=== PATIENT | female | born 1935 ===

== ENCOUNTER 2018-04-28 17:43 | Observation (INO) ==
--- NOTE | 2018-04-28 19:15 | Emergency Department Note ---
Disposition Clinical Impression: Shortness of breath, NSTEMI (non-ST elevated myocardial infarction), Hypertension, Hyperlipidemia Disposition: Admitted As Inpatient Condition: Good General Adult HPI - General Chief complaint: ED Shortness of Breath/Dyspnea Stated complaint: SOB/Nausea/Pain in arms/Legs Time Seen by Provider: 04/28/18 18:28 Source: patient Limitations: no limitations Nursing Notes Reviewed: Yes Vital Signs Reviewed: Yes - History of Present Illness HPI Narrative: Patient's an 82-year-old female with history of hypertension and hyperlipidemia who presents the emergency department with complaints of shortness of breath, generalized weakness and lightheadedness. The patient states that last night at approximately 12 AM she developed burning pain throughout bilateral upper and lower extremities with slight ringing in her ears. She states she otherwise feels short of breath when she gets up and move around and feels that she just cannot quite catch her breath or take a deep breath in. She is being evaluated for DVT with Dr. Florence as her bilateral lower extremity pain has been ongoing for some time. She otherwise feels nauseated at this point. She denies any vomiting, chest pain, abdominal pain, dysuria, hematuria, diarrhea, constipation. Pain Scale: 10 - Related Data Allergies Allergy/AdvReac Type Severity Reaction Status Date / Time cefdinir AdvReac Difficulty Verified 04/28/18 18:00 Breathing Review of Systems: In addition to that documented in the HPI above, the additional ROS was obtained: General: Denies fever. Denies chills. Denies weight loss. Denies behavioral change. Eyes: Denies visual changes. ENT: Denies nasal congestion. Denies sore throat. Denies hearing change. Cardio: Denies chest pain. Denies palpitations. Respiratory: Denies cough. ADMITS shortness of breath. Denies wheezing. GI: Admits nausea, DENIES vomiting, or diarrhea. Denies hematochezia or melena. Denies abdominal pain. : Denies dysuria, hematuria, or urinary retention MSK: Denies back pain. Denies joint swelling. Neuro: Denies slurred speech. ADMITS tingling. DENIES numbness Denies focal weakness. Denies headache. Denies loss of consciousness. Psych: Denies mood changes. All systems ED: reviewed and negative except as stated. Review of Systems: As Per HPI Past Medical History - Past Medical History Medical history: Reports: hyperlipidemia, hypertension, thyroid disease Psychiatric history: Reports: no psych history - Social History Smoking Status: Never smoker Smokeless Tobacco Status: No Alcohol use: Reports: none Drug use: Reports: none Physical Exam General: Conversant. No apparent distress. Follow commands. Appears stated age. Neck: No JVD. Trachea midline. Neck supple. Eyes: PERRL. No scleral icterus. HENT: Normocephalic and atraumatic. Moist mucus membranes. Cardiovascular: Regular rate and rhythm. Normal S1 and S2. No murmurs appreciated. Normal capillary refill. Extremities well perfused with 2+ distal pulses bilaterally. No edema. Pulmonary: Normal and equal breath sounds bilaterally, anteriorly and posteriorly. No wheezes, rales, or rhonchi. Not in respiratory distress. Speaks in full sentences. Abdomen: Soft, nondistended, and tontender. No bruits or masses. No guarding. Neuro: Alert and oriented to person, place, and time. CN II-XII tested and grossly intact. No hemineglect. Speech is fluid and without slurring. Sensory: Sensation intact to light touch in all extremities. Motor: Normal tone and bulk. No pronator drift. 5/5 strength in LUE 5/5 strength in RUE 5/5 strength in LLE 5/5 strength in RLE Coordination: heel to huffman testing intact bilaterally. Reflexes: Brachioradialis, biceps, and patellar reflexes 2+ and symmetric bilaterally. Babinski with downgoing toes bilaterally. Skin: No rashes noted on visualized skin. Musculoskeletal: No bony abnormalities visualized. Moves all extremities. Psych: Normal mood. Pleasant. Makes appropriate eye contact. - General Limitations: no limitations General appearance: alert, in no apparent distress Course Vital Signs Temperature 98.6 F 04/28/18 17:57 Pulse Rate 65 04/28/18 17:57 Respiratory Rate 14 04/28/18 17:57 Blood Pressure 203/71 04/28/18 17:57 O2 Sat by Pulse Oximetry 98 04/28/18 17:57 Temperature 98.6 F 04/28/18 17:57 Pulse Rate 58 04/28/18 20:49 Respiratory Rate 19 04/28/18 20:49 Blood Pressure 144/55 04/28/18 20:49 O2 Sat by Pulse Oximetry 97 04/28/18 20:49 Oxygen Delivery Oxygen Delivery Room Air Medical Decision Making - MDM Narrative Medical decision making narrative: 82-year-old female who presents with generalized weakness and shortness breath. Given the patient's age did obtain CBC, BMP, EKG, troponin, chest x-ray, TSH and urinalysis. CBC and BMP appear approximately the patient's baseline as she has chronic hyponatremia. EKG appears appear accident with the patient's baseline without ischemic changes. Chest x-ray unremarkable. Troponin is elevated at 0.06. The patient does have risk factors including hypertension and hyp erlipidemia but has otherwise never had cardiac issues. Given the patient's age and heart score of 4 to believe she warrants admission and further cardiac evaluation. Discussed the case with on-call hospitalist, Dr. Rueda who agrees with plan for admission. 325 mg aspirin given. Patient agrees with and understands course of treatment plan including plan for admission. All questions answered. - Medical Records Medical records reviewed: Yes I reviewed the patient's medical records. - Lab Data Lab results reviewed: Yes I reviewed the patient's lab results. Result diagrams: 04/28/18 19:18 04/28/18 19:18 Lab Results 04/28/18 04/28/18 04/28/18 Range/Units 19:18 19:18 19:25 WBC 8.0 (4.3-11.1) K/mcL RBC 4.31 (3.82-4.97) M/mcL Hgb 12.5 (11.5-15.4) g/dL Hct 36.8 (35.3-44.9) % MCV 85.4 (83.0-100.0) fL MCH 29.0 (28.0-33.3) pg MCHC 34.0 (31.6-35.5) g/dL RDW 13.9 (11.5-14.5) % Plt Count 268 (140-400) K/mcL MPV 8.4 L (9.4-12.4) fL Immature Gran % 0.3 (0-4) % Seg Neutrophils % 65.0 % Lymphocytes % 24.5 % Monocytes % 8.7 % Eosinophils % 1.0 % Basophils % 0.5 % Neutrophils # 5.2 (1.6-8.9) K/mcL Lymphocytes # 2.0 (0.6-4.6) K/mcL Monocytes # 0.7 (0.0-1.3) K/mcL Eosinophils # 0.1 (0.0-0.6) K/mcL Basophils # 0.0 (0.0-0.2) K/mcL Sodium 129 L (136-145) mEq/L Potassium 3.9 (3.5-5.1) mEq/L Chloride 105 (98-107) mEq/L Carbon Dioxide 24 (23-29) mEq/L BUN 11 (8-23) mg/dL Creatinine 0.47 L (0.60-1.20) mg/dL Est GFR ( Amer) > 60 (> 60) Est GFR (Non-Af Amer) > 60 (> 60) BUN/Creatinine Ratio 23 (6-26) Glucose 107 H (70-105) mg/dL Calculated Osmolality 268 L (280-300) Calcium 9.4 (8.6-10.3) mg/dL Total Bilirubin 0.3 (0.3-1.0) mg/dL Direct Bilirubin 0.1 (0.0-0.2) mg/dL Indirect Bilirubin 0.2 (0.0-1.2) mg/dL AST 14 (13-39) Units/L ALT 19 (7-52) Units/L Alkaline Phosphatase 72 (34-104) Units/L Troponin I 0.06 H* (< 0.04) ng/mL Serum Total Protein 6.5 (6.4-8.9) g/dL Albumin 4.1 (3.5-5.7) g/dL Globulin 2.4 (2.4-3.5) g/dL Albumin/Globulin Ratio 1.7 (1.1-2.2) TSH 2.877 (0.340-5.600) mcIU/mL Urine Color Yellow (Yellow) Urine Clarity Clear (Clear) Urine pH 6.5 (5.0-8.0) pH Units Ur Specific [place] 1.010 (1.010-1.025) Urine Protein Negative (Neg-Trace) mg/dL Urine Glucose (UA) Normal (Normal) mg/dL Urine Ketones Negative (Negative) mg/dL Urine Blood Moderate H (Negative) Urine Nitrite Negative (Negative) Urine Bilirubin Negative (Negative) Urine Urobilinogen Normal (Normal) mg/dL Ur Leukocyte Esterase Negative (Negative) Urine Microscopic RBC 3-5 H (0-3) per hpf Urine Microscopic WBC 0-3 (0-3) per hpf Ur Squamous Epith Cells None Seen (None-Few) per lpf Urine Bacteria None Seen (None-Few) per hpf Hyaline Casts None Seen (None-Few) per lpf Ur Culture Indicated? NO (NO) - Radiology Data Radiology results reviewed: Yes I reviewed the patient's radiology results. Chest X-Ray 04/28/18 18:45 IMPRESSION: No acute findings. D/ / 04/28/2018 19:13:32 Dennis Oreilly MD / crista Interpreting Provider: Dennis Oreilly MD - EKG Data EKG #1 EKG attestation: Yes I reviewed and interpreted this EKG. EKG results narrative: Normal sinus rhythm rate of 58. Normal axis. WA 126, QRS 91, QTC 469, QTC 461. No evidence of ST elevation Attestation Statement - Attestation Attestation: DR Harrington note: Pt seen in conjunction w/ Resident Dr Colon; Please see her charting for c omplete documentation. I agree with patient's Assessment and spent [id number] time with the patient and I agree with the patient's treatment and disposition. Patient pain-free at this time. She had vague chest tightness and elevated blood pressure tonight. No known prior coronary disease. Asymptomatic upon admission. No focal neurological findings. Hyponatremia is chronic. EKG and blood work reviewed Heart Score - Score History: Slightly Suspicious EKG: Normal Age: Greater than 65 Risk Factors: 1-2 risk factors Troponin: 1-3x normal limit HEART Score Total: 4
[2018-04-28 19:35] LABS: Bilirubin,Urine Negative (Negative); Blood,Urine Moderate (Negative); Clarity,Urine Clear (Clear); Color,Urine Yellow (Yellow); Glucose,Urine (UA) Normal (Normal); Ketones,Urine Negative (Negative); Leukocyte Esterase,Urine Negative (Negative); Nitrite,Urine Negative (Negative); PH,Urine 6.5 pH Units (5.0-8.0); Protein,Urine Negative (Neg-Trace); Urobilinogen,Urine Normal (Normal)
[2018-04-28 19:36] LABS: Basophils % 0.5 %; Eosinophils # 0.1 K/mcL (0.0-0.6); Hematocrit 36.8 % (35.3-44.9); Hemoglobin 12.5 g/dL (11.5-15.4); Immature Granulocytes % 0.3 % (0-4); Lymphocytes % 24.5 %; Mean Corpuscular Volume 85.4 fL (83.0-100.0); Mean Platelet Volume 8.4 fL (9.4-12.4); Monocytes # 0.7 K/mcL (0.0-1.3); Monocytes % 8.7 %; Neutrophils # 5.2 K/mcL (1.6-8.9); Platelet Count 268 K/mcL (140-400); Red Blood Count 4.31 M/mcL (3.82-4.97); Red Cell Distribution Width 13.9 % (11.5-14.5)
[2018-04-28] MEDS ORDERED: Ondansetron ODT 4 MG TAB.RAPDIS SL ONE (19:36)
[2018-04-28 19:38] LABS: Bacteria,Urine None Seen per hpf (None-Few); Hyaline Casts,Urine None Seen per lpf (None-Few); Squamous Epithelial Cell,Urine None Seen per lpf (None-Few); WBC,Urine 0-3 per hpf (0-3)
[2018-04-28 19:55] LABS: Alanine Aminotransferase 19 Units/L (7-52); Albumin 4.1 g/dL (3.5-5.7); Albumin/Globulin Ratio 1.7 (1.1-2.2); Alkaline Phosphatase 72 Units/L (34-104); Aspartate Amino Transferase 14 Units/L (13-39); BUN/Creatinine Ratio 23 (6-26); Bilirubin,Direct 0.1 mg/dL (0.0-0.2); Bilirubin,Indirect 0.2 mg/dL (0.0-1.2); Bilirubin,Total 0.3 mg/dL (0.3-1.0); Blood Urea Nitrogen 11 mg/dL (8-23); Calcium 9.4 mg/dL (8.6-10.3); Carbon Dioxide 24 mEq/L (23-29); Chloride 105 mEq/L (98-107); Globulin 2.4 g/dL (2.4-3.5); Glucose 107 mg/dL (70-105); Osmolality,Calculated 268 (280-300); Potassium 3.9 mEq/L (3.5-5.1); Sodium 129 mEq/L (136-145); Total Protein 6.5 g/dL (6.4-8.9); eGFR For Non-African Americans > 60 (> 60)
[2018-04-28 19:59] LABS: Troponin I 0.06 ng/mL (< 0.04)
[2018-04-28 20:21] LABS: Thyroid Stimulating Hormone 2.877 mcIU/mL (0.340-5.600)
[2018-04-28] MEDS ORDERED: Aspirin 81 MG TAB.CHEW PO STA (21:08)
[2018-04-29] MEDS ORDERED: Nitroglycerin 0.4 MG TAB.SUBL SL PRN (00:37)
[2018-04-29] MEDS ORDERED: Ondansetron 4 MG/2 ML VIAL IVP PRN (00:37)
[2018-04-29] MEDS ORDERED: Naloxone 0.4 MG/ML INJ IVP PRN (00:40)
--- NOTE | 2018-04-29 01:11 | Internal Med History&Physical ---
<Vy Burton N - Last Filed: 04/29/18 03:08> Date of Encounter: 04/29/18 Time of Encounter: 01:04 Internal Medicine - H&P: HPI Chief complaint: chest discomfort, nausea, sensory changes History of present illness: Ms. Stephenson is a 82 year old female with a history of hypertension, hyperlipidemia and hypothyroidism who presents for a 1 day history of chest di scomfort. Patient states that her symptoms were preceded by chronic "burning" sensation that she has been experiencing in her arms and legs for the past several months. Patient states the symptoms have been progressively worsening and now occur almost daily. She is currently being worked up by Dr. Florence, vascular surgery, who ordered a ultrasound for evaluation of this complaint recently which was negative for DVT. She describes her extremity symptoms as if her arms and legs are on fire. This is associated with diffuse upper and lower extremity weakness as well. Patient states that yesterday her symptoms were worse and this was followed by shortness of breath and a chest discomfort in the central part of her chest. She describes it as a burning sensation in her chest with some mild pressure, denies radiation. Associated with shortness of breath and nausea but no diaphoresis. This prompted the patient to present to the emergency department for further evaluation and workup. In the emergency department patient was hypertensive with a systolic BP of 203. Her lab workup was remarkable for chronic hyponatremia and a mild elevation of her troponin at 0.06. EKG in the emergency department showed sinus rhythm with no ST elevations. Patient denies any history of coronary artery disease and has never been evaluated by cardiology in the past. She is asymptomatic at this time and does not complain of any chest pain or shortness of breath, but does endorse some nausea. Due to patient's nonspecific chest discomfort and elevation of her troponin she was admitted for further evaluation. Past Med Surg Social Fam HX - Past Medical History Medical history: hyperlipidemia, hypertension, thyroid disease Psychiatric history: no psych history - Social History Smoking Status: Never smoker Smokeless Tobacco Status: No Alcohol use: none Drug use: none Internal Medicine - H&P: Meds Allergy/AdvReac Type Severity Reaction Status Date / Time cefdinir AdvReac Difficulty Verified 04/28/18 18:00 Breathing All Systems PM: A 10-system review of systems was performed and is negative for pertinent findings except as documented above in the HPI. - EENT Eyes: no loss of vision Ears: decreased hearing - Cardiovascular Cardiovascular ROS IM: chest pain, no diaphoresis - Respiratory Respiratory: dyspnea, no cough, no wheezing - Gastrointestinal Gastrointestinal: no abdominal pain - Genitourinary Genitourinary: no dysuria - Musculoskeletal Musculoskeletal ROS IM: no back pain, no neck pain - Integumentary Integumentary IM: no rash - Neurological Neurological ROS: no abnormal gait - Psychiatric Psychiatric: no confusion - Endocrine Endocrine IM: no excessive sweating - Constitutional Vitals: Temp Pulse Resp BP Pulse Ox 98.6 F 58 14 140/49 97 04/28/18 17:57 04/28/18 20:49 04/29/18 00:23 04/29/18 00:23 04/28/18 20:49 Exam: Constitutional: Appears younger than stated age, resting comfortable, in no acute distress HEENT: Pupils are equal and round, extraocular muscles are intact. External ears and nares patent. No intra-oral lesions. No facial asymmetry or dysarthria. Neck: No JVD, trachea midline Chest: Symmetric chest wall rise, no tenderness to palpation Respiratory: Clear to auscultation bilaterally, no rales rhonchi or wheezing Cardiovascular: Regular rate and rhythm, no murmurs Abdomen: Soft, nontender, no guarding or rigidity Extremity: Moves all extremities, no cyanosis, clubbing, or edema Skin: No rashes or jaundice Psych: Appropriate mood and affect Neurological: -General: Alert and oriented 3 -Cranial nerves: No facial asymmetry, no dysarthria, tongue protrudes midline, EOMI, normal SCM to be his muscle strength -Upper extremity: Sensation intact to light touch, strength is 5 out of 5 bilaterally throughout, biceps reflex is 1+, no pronator drift, finger to nose normal -Lower extremity: Sensation intact to light touch, strength 5 out of 5 bilatera lly throughout, patellar reflexes 2+ Internal Med - H&P Results - Labs CBC & Chem 7: 04/29/18 01:07 04/29/18 01:07 Labs: Short CBC 04/28/18 Range/Units 19:18 WBC 8.0 (4.3-11.1) K/mcL Hgb 12.5 (11.5-15.4) g/dL Hct 36.8 (35.3-44.9) % Plt Count 268 (140-400) K/mcL Neutrophils # 5.2 (1.6-8.9) K/mcL BMP 04/28/18 19:18 Sodium 129 L Potassium 3.9 Chloride 105 Carbon Dioxide 24 BUN 11 Creatinine 0.47 L Glucose 107 H Calcium 9.4 Cardiac Enzymes 04/28/18 Range/Units 19:18 Troponin I 0.06 H* (< 0.04) ng/mL Liver Function 04/28/18 Range/Units 19:18 Total Bilirubin 0.3 (0.3-1.0) mg/dL Direct Bilirubin 0.1 (0.0-0.2) mg/dL AST 14 (13-39) Units/L ALT 19 (7-52) Units/L Alkaline Phosphatase 72 (34-104) Units/L Albumin 4.1 (3.5-5.7) g/dL Urine 04/28/18 Range/Units 19:25 Urine Color Yellow (Yellow) Urine Clarity Clear (Clear) Urine pH 6.5 (5.0-8.0) pH Units Ur Specific [place] 1.010 (1.010-1.025) Urine Protein Negative (Neg-Trace) mg/dL Urine Glucose (UA) Normal (Normal) mg/dL - Impressions ITS Impressions Chest X-Ray 04/28/18 18:45 IMPRESSION: No acute findings. D/ / 04/28/2018 19:13:32 Dennis Oreilly MD / crista Interpreting Provider: Dennis Oreilly MD - Assessment and Plan (1) Elevated troponin Current Visit: Yes Status: Acute Assessment and plan: Patient presented with one-day history of chest discomfort Associated with shortness of breath and nausea No history of coronary artery disease, declines previous cardiac workup No EKG evidence for any ST elevations Patient received loading dose aspirin in the emergency department Currently not complaining of chest pain or shortness of breath It is possible her troponin elevation may be secondary to demand from her significant hypertension We will trend troponin BNP pending Echo in the morning Stress test ordered Cardiology consultation pending Patient also was recently worked up for DVT which was negative, however will obtain d-dimer (2) Paresthesias Current Visit: Yes Status: Acute Assessment and plan: Patient's chest discomfort symptoms were preceded by worsening "burning like "sensation in her upper and lower extremities This is associated with weakness of the upper lower extremity's as well These symptoms have been chronic for several months, however has been worsening over the past few months Unknown etiology at this time for patient sensory changes Changes are bilateral and equal, low suspicion for CVA Patient was recently evaluated by vascular surgery and a Doppler lower extremity was negative for DVT Patient declines any neck pain, and there are no brisk reflexes on examination, therefore a spinal stenosis-like process is less likely however further imaging with MRI of the spine or a neurological consultation may be considered for patients nonspecific symptoms. Patient is otherwise neurologically intact. We will check a vitamin B12 and folate level (3) Hyperlipidemia Current Visit: Yes Status: Acute Assessment and plan: Continue home dose simvastatin Lipid panel and A1c pending Qualifiers: Hyperlipidemia type: unspecified Qualified Code(s): E78.5 - Hyperlipidemia, unspecified (4) Hypertension Current Visit: Yes Status: Acute Assessment and plan: Continue home dose lisinopril Every 4 hour vital signs Qualifiers: Hypertension type: essential hypertension Qualified Code(s): I10 - Essential (primary) hypertension (5) Hyponatremia Current Visit: Yes Status: Chronic Assessment and plan: Chronic, will continue to trend (6) DVT prophylaxis Current Visit: Yes Status: Acute Assessment and plan: heparin 5000u subQ q12 hours - Time Spent With Patient Total time spent is greater than 50% in coordination of care (as documented) at patient's floor/unit and/or counseling patient: Mian Simons - Last Filed: 04/29/18 03:24> Date of Encounter: 04/29/18 Internal Medicine - H&P: HPI History of present illness: Ms. Stephenson is a 82 year old female All Systems PM: A 10-system review of systems was performed and is negative for pertinent findings except as documented above in the HPI. - Constitutional Vitals: Temp Pulse Resp BP Pulse Ox 98.3 F 51 16 151/62 97 04/29/18 03:17 04/29/18 03:17 04/29/18 03:17 04/29/18 03:17 04/29/18 03:17 Internal Med - H&P Results - Labs CBC & Chem 7: 04/29/18 01:07 04/29/18 01:07 Labs: Short CBC 04/28/18 04/29/18 Range/Units 19:18 01:07 WBC 8.0 6.7 (4.3-11.1) K/mcL Hgb 12.5 11.8 (11.5-15.4) g/dL Hct 36.8 35.6 (35.3-44.9) % Plt Count 268 263 (140-400) K/mcL Neutrophils # 5.2 3.7 (1.6-8.9) K/mcL BMP 04/28/18 04/29/18 19:18 01:07 Sodium 129 L 131 L Potassium 3.9 3.8 Chloride 105 103 Carbon Dioxide 24 26 BUN 11 10 Creatinine 0.47 L 0.57 L Glucose 107 H 110 H Calcium 9.4 9.4 Cardiac Enzymes 04/28/18 04/29/18 Range/Units 19:18 01:07 Troponin I 0.06 H* 0.05 H* (< 0.04) ng/mL Liver Function 04/28/18 04/29/18 Range/Units 19:18 01:07 Total Bilirubin 0.3 0.4 (0.3-1.0) mg/dL Direct Bilirubin 0.1 (0.0-0.2) mg/dL AST 14 15 (13-39) Units/L ALT 19 18 (7-52) Units/L Alkaline Phosphatase 72 72 (34-104) Units/L Albumin 4.1 4.0 (3.5-5.7) g/dL Urine 04/28/18 Range/Units 19:25 Urine Color Yellow (Yellow) Urine Clarity Clear (Clear) Urine pH 6.5 (5.0-8.0) pH Units Ur Specific [place] 1.010 (1.010-1.025) Urine Protein Negative (Neg-Trace) mg/dL Urine Glucose (UA) Normal (Normal) mg/dL - Impressions ITS Impressions Chest X-Ray 04/28/18 18:45 IMPRESSION: No acute findings. D/ / 04/28/2018 19:13:32 Dennis Oreilly MD / crista Interpreting Provider: Dennis Oreilly MD - Time Spent With Patient Total time spent is greater than 50% in coordination of care (as documented) at patient's floor/unit and/or counseling patient: - Attending Attestation I performed a history and physical exam of the patient and discussed management with the resident. I reviewed the resident's note and agree with the documented findings and plan of care. Family history reviewed and found non-contributory.
[2018-04-29 01:38] LABS: Basophils # 0.1 K/mcL (0.0-0.2); Basophils % 0.7 %; Eosinophils # 0.1 K/mcL (0.0-0.6); Eosinophils % 1.8 %; Hematocrit 35.6 % (35.3-44.9); Hemoglobin 11.8 g/dL (11.5-15.4); Immature Granulocytes % 0.1 % (0-4); Lymphocytes # 2.2 K/mcL (0.6-4.6); Lymphocytes % 32.5 %; Mean Corpuscular HGB Conc 33.1 g/dL (31.6-35.5); Mean Corpuscular Hemoglobin 28.5 pg (28.0-33.3); Mean Platelet Volume 8.6 fL (9.4-12.4); Monocytes # 0.6 K/mcL (0.0-1.3); Monocytes % 9.5 %; Neutrophils # 3.7 K/mcL (1.6-8.9); Platelet Count 263 K/mcL (140-400); Red Blood Count 4.14 M/mcL (3.82-4.97); Red Cell Distribution Width 14.1 % (11.5-14.5); Segmented Neutrophils % 55.4 %
[2018-04-29 01:47] LABS: INR 1.2
[2018-04-29 02:03] LABS: Alanine Aminotransferase 18 Units/L (7-52); Albumin/Globulin Ratio 1.6 (1.1-2.2); Alkaline Phosphatase 72 Units/L (34-104); Aspartate Amino Transferase 15 Units/L (13-39); BUN/Creatinine Ratio 18 (6-26); Bilirubin,Total 0.4 mg/dL (0.3-1.0); Blood Urea Nitrogen 10 mg/dL (8-23); Calcium 9.4 mg/dL (8.6-10.3); Carbon Dioxide 26 mEq/L (23-29); Chloride 103 mEq/L (98-107); Chol/HDL Ratio 2.2 (0-4.9); Cholesterol 176 mg/dL (< 200); Globulin 2.5 g/dL (2.4-3.5); Glucose 110 mg/dL (70-105); HDL Cholesterol 79 mg/dL (40-59); LDL Cholesterol,Calculated 82 mg/dL (0-99); Magnesium 2.3 mg/dL (1.6-2.6); Osmolality,Calculated 272 (280-300); Potassium 3.8 mEq/L (3.5-5.1); Sodium 131 mEq/L (136-145); Total Protein 6.5 g/dL (6.4-8.9); Triglycerides 76 mg/dL (< 150); eGFR For Non-African Americans > 60 (> 60)
[2018-04-29] MEDS ORDERED: *HR* LORazepam 1 MG TABLET PO ONE (03:22)
[2018-04-29] MEDS ORDERED: *HR* Promethazine 25 MG/ML VIAL IVP ONE (03:23)
[2018-04-29] MEDS ORDERED: Melatonin 3 MG TABLET PO PRN (05:49)
[2018-04-29] MEDS ORDERED: Regadenoson 0.4 MG/5 ML SYRINGE IVP ONE (05:51)
[2018-04-29] MEDS ORDERED: *HR* LORazepam 0.5 MG TABLET PO ONE (05:52)
[2018-04-29] MEDS ORDERED: *HR* Heparin 5,000 UNIT/ML VIAL SQ SCH (06:00)
[2018-04-29 07:06] VITALS: BP 145/74
[2018-04-29 07:53] LABS: Folate 18.2 ng/mL (3.0-16.0)
[2018-04-29 08:20] LABS: Estimated Average Glucose 117 mg/dl; Hemoglobin A1C 5.7 %
--- NOTE | 2018-04-29 08:47 | Event Note ---
Date of Encounter: 04/29/18 Time of Encounter: 08:45 - Cardiology Event Note [place]. 0.06, and 0.05 x 2 in setting of HTN SBP 200's. ST pending, discussed with primary service, ok to proceed with stress test. Suspected type II demand ischemia.
[2018-04-29] MEDS ORDERED: Aspirin 81 MG TAB.CHEW PO SCH (09:00)
--- NOTE | 2018-04-29 12:38 | Discharge Summary ---
<Sylvie Shipley - Last Filed: 04/29/18 13:57> - NOTES TO OUTPATIENT PROVIDER Notes to Outpatient Provider: Blood pressure was elevated to 203/71 upon presentation. Therefore increased lisinopril from 10mg to 20mg. Instructed to continue to monitor at home. Believe chest pain may be due to GERD therefore given omeprazole. Orders not resulted at time of discharge: Pending orders 04/28/18 18:45 ECG 12 lead ECG [ECG] Stat 04/29/18 00:39 NM elyse perf SPECT multi [NM] Routine 04/29/18 12:45 Troponin I Q6H Date of Encounter: 04/29/18 Time of Encounter: 09:30 - Discharge Diagnosis (1) Hypertension Priority: Secondary Status: Acute Qualifiers: Hypertension type: essential hypertension Qualified Code(s): I10 - Essential (primary) hypertension (2) Hyperlipidemia Priority: Secondary Status: Acute Qualifiers: Hyperlipidemia type: unspecified Qualified Code(s): E78.5 - Hyperlipidemia, unspecified (3) Elevated troponin Priority: Secondary Status: Acute (4) Paresthesias Priority: Secondary Status: Acute (5) Chest pain Priority: Primary Status: Acute Qualifiers: Chest pain type: unspecified Qualified Code(s): R07.9 - Chest pain, unspecified Hospital course: Ms. Stephenson is a 82 year old female with a history of hypertension, hyperlipidemia, and hypothyroidism who presents for a 1 day history of chest discomfort and burning who was admitted for ACS r/o. Her lab workup was remarkable for chronic hyponatremia and a mild elevation of her troponin at 0.06, 0.05,0.05. EKG in the emergency department showed sinus rhythm with no ST elevations. Also had elevated BP of 203/71 upon initial evaluation but returned to a systolic in the 140s within the first 8 hours after admission without intervention. Nuclear stress test showed No ischemia or infarct on perfusion study. Stress LVEF 67%. Patient had an episode of chest burning and nausea this morning that was relieved by Zofran and Ativan. She was also complaining of chronic peripheral burning in her extremities which her chest pain felt like a continuation of this extending to her core. We believe chest burning to be due to either GERD or anxiety. Patient was discharged with a prescription for omeprazole 20mg daily, gabapentin 100mg TID, Zofran and her lisinopril was increased from 10mg to 20mg. Patient was discharged home with instructions to f/u with her PCP within the next week. Discharge discussed with: patient - Time Spent with Patient Total time spent providing and/or coordinating discharge services: - Discharge Medications Prescriptions: New RX: Simvastatin [Zocor] 10 mg PO HS tablet RX: Aspirin 81 mg PO DAILY tab.chew RX: Levothyroxine [Synthroid] 75 mcg PO DAILY@0630 tablet RX: Melatonin 3 mg PO HS PRN tablet PRN Reason: Insomnia Ondansetron ODT [Zofran ODT] 4 mg PO Q6HR PRN #20 tab.rapdis PRN Reason: Nausea And Vomiting RX: Gabapentin [Neurontin] 100 mg PO TID #90 capsule RX: Omeprazole 20 mg PO DAILY #30 tablet. RX: Lisinopril [Zestril] 20 mg PO DAILY #30 tablet Home Medications: Ondansetron ODT [Zofran ODT] 4 mg PO Q6HR PRN #20 tab.rapdis 04/29/18 [Rx] RX: Aspirin 81 mg PO DAILY tab.chew 04/29/18 [Rx] RX: Gabapentin [Neurontin] 100 mg PO TID #90 capsule 04/29/18 [Rx] RX: Levothyroxine [Synthroid] 75 mcg PO DAILY@0630 tablet 04/29/18 [Rx] RX: Lisinopril [Zestril] 20 mg PO DAILY #30 tablet 04/29/18 [Rx] RX: Melatonin 3 mg PO HS PRN tablet 04/29/18 [Rx] RX: Omeprazole 20 mg PO DAILY #30 tablet. 04/29/18 [Rx] RX: Simvastatin [Zocor] 10 mg PO HS tablet 04/29/18 [Rx] Allergies/Adverse Reactions: Allergy/AdvReac Type Severity Reaction Status Date / Time cefdinir AdvReac Difficulty Verified 04/28/18 18:00 Breathing Date of admission: 04/29/18 00:06 Primary care physician: Nena Magana CNP Discharging clinician: Rowena Quispe Anticipated date of discharge: 04/29/18 - Constitutional Vitals: Temp Pulse Resp BP Pulse Ox 97.6 F 51 16 145/74 96 04/29/18 07:05 04/29/18 07:05 04/29/18 07:05 04/29/18 07:05 04/29/18 07:59 Exam: Constitutional: Alert, in no acute distress Head: Normocephalic, atraumatic Heart: Normal, regular rate and rhythm, no murmurs Lungs: Clear to auscultation, no wheezes, rales, or rhonchi Abdomen: Soft, nondistended, nontender, bowel sounds present and normal, no gua rding or rigidity. Extremities: No edema, No clubbing, radial pulse +2/4, capillary refill <2sec. Skin: Skin warm and dry, no lesions, no rashes, no jaundice Neurologic: Cranial nerves II through XII grossly intact, strength 5/5 in all extremities, negative romberg, no nystagmus, sensation intact Psych: Cooperative with exam, good eye contact, cognitive function intact, speech clear, thought process logical, and goal directed - Patient Status Disposition: Home, Self-Care Condition: Good Functional capacity at discharge: independent ambulation Overall status at discharge: patient is progressing back to baseline - Discharge Instructions Instructions: Angina (DC), Chronic Hypertension (DC) Follow Up With: Nena Magana CNP [Primary Care Provider] - 05/02/18 2:00 pm Additional Instructions: Return to the ED if worsening, new, or concerning symptoms occur. Please take medications as prescribed. Please follow-up with her primary care physician in one week. - Diet and Activity Activity: increase activity as tolerated Diet: advance to your usual diet <Rowena Quispe - Last Filed: 04/29/18 14:32> Orders not resulted at time of discharge: Pending orders 04/29/18 00:39 NM elyse perf SPECT multi [NM] Routine Date of Encounter: 04/29/18 - Discharge Diagnosis (1) Hypertension Status: Acute Qualifiers: Hypertension type: essential hypertension Qualified Code(s): I10 - Essential (primary) hypertension (2) Hyperlipidemia Status: Acute Qualifiers: Hyperlipidemia type: unspecified Qualified Code(s): E78.5 - Hyperlipidemia, unspecified (3) Elevated troponin Status: Acute (4) Paresthesias Status: Acute (5) Chest pain Status: Acute Qualifiers: Chest pain type: unspecified Qualified Code(s): R07.9 - Chest pain, unspecified Hospital course: Ms. Stephensno is a 82 year old female - Time Spent with Patient Total time spent providing and/or coordinating discharge services: Date of admission: 04/29/18 00:06 Primary care physician: Nena Magana CNP - Constitutional Vitals: Temp Pulse Resp BP Pulse Ox 97.6 F 51 16 145/74 96 04/29/18 07:05 04/29/18 07:05 04/29/18 07:05 04/29/18 07:05 04/29/18 07:59 - Attending Attestation I examined this patient and my medical decision-making was reviewed with the Resident Physician Dr. Shipley. I agree with the documented findings, disposition and treatment plan as described except to the extent set forth below. Ms. Stephenson is a 82 year old female with a history of hypertension, hyperlipidemia and hypothyroidism who presents for a 1 day history of chest discomfort. She also c/o chronic b/l LE and UE parasthesia / tingling sensation. 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 Her initial troponin slightly elevated at 0.06, most likely its demand ischemia due to severe hypertension. Her serial troponin trended down to normal 0.04. She did go for nuclear stress test which came back is negative for ischemia, no perfusion defect noticed. So will discharge her home in a stable condition to day. Her paresthesia seems to be secondary to peripheral neuropathy, so started her on on Neurontin 100mg at bedtime. She does have GERD like symptoms with nausea. So placed her on PP and Zofran PRN. Will discharge her home in a stable condition today. Gen: A, A< o X 3 Chest: Diminished BS B/l no crackles Heart: S1S2+ RRR No Murmurs
--- NOTE | 2018-05-01 19:33 | Electrocardiograph Report ---
[place] [id number] Test Date: 2018-04-28 Pat Name: Denisha Stephenson Department: [id number] Room: 3B Gender: F [employer] Cook: : 1935 Requested By: Arely Colon Order Number: [id number] Reading MD: Linsey Chacon Measurements Intervals [place] Rate: 58 P: 35 MD: 126 QRS: 12 QRSD: 91 T: 52 QT: 469 QTc: 461 Interpretive Statements Sinus rhythm Electronically Signed On 05-01-2018 19:31:42 EST by Linsey Chacon
== END 2018-04-29 15:03 | disposition home or self-care (01) ==
LOC: EMEROOARM 17:43 → 3BNU 17:43 → SUATTDRO 04-29 00:06 → 3BNU 04-29 00:41
PROVIDERS: ADMIT Internal Medicine; ATTEND Family Medicine